=== PATIENT | female | born 1950 | race African-American/Black ===

== ENCOUNTER 2017-04-19 14:48 | Inpatient (IN) ==
[2017-04-19] MEDS ORDERED: DILTIAZEM 100 MG VIAL.ADD IV ONE (15:06)
--- NOTE | 2017-04-19 15:29 | Emergency Department Note ---
Jean Vasquez Manpreet, am scribing for, and in the presence of, Kirby Chahal MD 15:20. Fela Vasquez Phillip K, MD, personally performed the services described in this documentation, ascribed by Sterling Pena in my presence, and it is both accurate and complete 528 . Arrival - Arrival Chief Complaint: Arrhythmia/Palpitations Stated Complaint: palpitations ED Nursing Triage Note: Pt was transfer from [facility] - AFIB - pt denies any chest pain - pt is on cardizem - no chest pain Mode of Arrival: Stretcher Limitations: No Limitations Source: Patient - History of Present Illness HPI Narrative: Pt is a 66 y/o female who is transferred from [facility] for AFIB and palpations. Pt c/o having sudden CP this AM around 0900 today. Pt also c/o SOB and having a fever earlier this week. Pt's temperature during triage was 97.3 F. Pt also c/o coughing with white phlegm. No other pains/complains reported to the ED. patient was seen several months ago at [facility] ER in hospital but does not remember having a heart catheterization. Patient states she was sent to [place] because there were no rooms available here. Patient is normally followed by Dr. Packer for chronic back pain. Onset (ago): hour(s) (This AM at 0900) Consistency: constant Severity: moderate Allergies/Adverse Reactions: Allergies Allergy/AdvReac Type Severity Reaction Status Date / Time ampicillin Allergy ITCHING Verified 11/18/15 16:49 cephalexin [From Keflex] Allergy ITCHING Verified 11/18/15 16:49 hydroxyzine [From Vistaril] Allergy ITCHING Verified 11/18/15 16:49 ketorolac [From Toradol] Allergy ITCHING Verified 11/18/15 16:49 Penicillins Allergy ITCHING Verified 11/18/15 16:49 Home Medications: Home Medications Medication Instructions Recorded Confirmed Type Aspirin [Ecotrin] 81 mg PO DAILY 11/18/15 04/04/16 History Buspirone HCl 15 mg PO TID 11/18/15 04/04/16 History Fentanyl [Fentanyl 50 mcg/hr Patch] 1 patch TRANSDERM Q3D 11/18/15 04/04/16 History Lisinopril 40 mg PO DAILY 11/18/15 04/04/16 History Magnesium Gluconate Tab 1,000 mg PO BID 11/18/15 04/04/16 History Metformin HCl 500 mg PO BID 11/18/15 04/04/16 History Oxycodone HCl/Acetaminophen 1 tablet PO BID PRN 11/18/15 04/04/16 History [Oxycodone-Acetaminophen 10-325] Potassium Chloride Cap/Tab [K Dur] 20 meq PO BID 11/18/15 04/04/16 History Rosuvastatin [Crestor] 20 mg PO DAILY 11/18/15 04/04/16 History dilTIAZem HCl [Diltiazem ER (24 300 mg PO DAILY 11/18/15 04/04/16 History hr)] Acetaminophen with Codeine 1 each PO BID 04/04/16 04/04/16 History [Acetaminophen-Cod #3 Tablet] Gabapentin 400 mg PO BID 04/04/16 04/04/16 History Review of System - Review of System 12 point system: reviewed and no additional remarkable complaints except as stated - Review of System Constitutional: Present: chills, fever (Earlier this week ). Absent: diaphoresis Head/Ears/Nose/Throat: Absent: sore throat Respiratory: Present: cough (With white phlegm), respiratory distress Cardiovascular: Present: chest pain. Absent: dyspnea on exertion Gastrointestinal: Absent: abdominal pain, nausea, vomiting Genitourinary female: Absent: dysuria Musculoskeletal: Absent: arm pain, back pain Neurological: Absent: headache, weakness, numbness, paresthesias Medical,Surgical,& Family Hx - Medical History Cardio: History of: CHF, Hypertension Psychological: History of: Anxiety Disorders Neurology: History of: Peripheral Neuropathy No history of: Seizures HEENT: History of: Eye Problem Endocrine: History of: Diabetes Mellitus (NIDDM), Dyslipidemia Rheumatology: History of;: Rheumatoid Arthritis Respiratory: History of: COPD Genitourinary: History of: Recurring Urinary Tract Infections Gastrointestinal: History of: GERD, GI Problems Hematology: History of: Anemia - Surgical History HEENT Surgeries: Surgical HX of: Tonsilectomy & Adenoidectomy Abdominal Surgeries: Surgical HX of: Abdominal Surgery, Cholecystectomy - Family History Family History: Reports;: Family Cancer (father (prostate)), Family Diabetes ( sisters), Family Hypertension (father, mother, sisters), Family Psychiatric Problems (brother) - Social History Smoking Status: Never smoker Frequency of Alcohol Use: None Type of Drug Use: None Exam Vital Signs: Vital Signs Temperature 97.3 F L 04/19/17 15:04 Pulse Rate 129 H 04/19/17 15:04 Respiratory Rate 20 04/19/17 15:04 Blood Pressure 146/112 04/19/17 15:04 O2 Sat by Pulse Oximetry 100 04/19/17 14:57 - General General appearance: alert, in no apparent distress - Head Head exam: Present: atraumatic, normocephalic, normal inspection - Eye Eye exam: Present: normal appearance, PERRL, EOMI - ENT ENT exam: Present: normal exam, normal oropharynx, mucous membranes moist, TM's normal bilaterally - Neck Neck exam: Present: normal inspection, full ROM, trachea midline - Chest Chest inspection: Present: normal inspection, symmetric chest wall rise. Absent : tenderness - Respiratory Respiratory exam: Present: normal lung sounds bilaterally. Absent: accessory muscle use, rales, respiratory distress, wheezes - Cardiovascular Cardiovascular exam: Present: tachycardia, irregular rhythm, normal heart sounds. Absent: regular rate, normal rhythm, murmur, rubs, gallop - Abdominal Exam Abdominal exam: Present: soft, normal bowel sounds. Absent: distention, tenderness, guarding, rebound - Extremities Exam Extremities exam: Present: normal inspection, full ROM. Absent: tenderness - Back Exam Back exam: Present: normal inspection, full ROM. Absent: tenderness - Neurological Exam Neurological exam: Present: alert, oriented X3, CN II-XII intact, reflexes normal - Psychiatric Psychiatric exam: Present: normal affect, normal mood - Skin Skin exam: Present: warm, dry, intact, normal color. Absent: pallor Course Course Narrative: Patient discussed with the hospitalist who will admit for further evaluation. Repeat labs here are presently pending. Results - Labs Lab Results: I have reviewed the patients labs (Labs reviewed from [facility] which showed normal cardiac isoenzymes and normal white blood count. Patient begun on a Cardizem infusion at 15 mg/h.) - EKG EKG results: interpreted by EVA (Atrial fibrillation with RVR, nonspecific ST- T changes) Disposition Clinical Impression: Atrial fibrillation with RVR, Chest pain possible angina, Chronic back pain Case discussed with: patient Disposition: Still a Patient Condition: Guarded
[2017-04-19] MEDS ORDERED: NITROGLYCERIN 2% OINT 1 INCH/GM PACK TOP ONE (15:35)
--- NOTE | 2017-04-19 16:03 | EKG Report ---
Stationary ECG Study [facility] ER Test Date: 04/19/2017 3:02:37 PM Pat Name: RIGOBERTO LAWSON Department: Room: Gender: F Medical Specialist: : [id number] Requested by: Kirby Keenan Order Number: [id number] Reading MD: ALLIE HERZOG Intervals [place] Rate: 118 P: 999 TX: 0 QRS: 85 QRSD: 77 T: -24 QT: 313 QTc: 383 Interpretive Statements ATRIAL FIBRILLATION WITH RAPID VENTRICULAR RESPONSE NONSPECIFIC T-WAVE ABNORMALITY Electronically Signed On 04-20-17 15:53:14 CDT by ALLIE HERZOG [email or web address]
[2017-04-19] MEDS ORDERED: INSULIN REGULAR 100 UNIT/ML SUBCUT ONE (16:06)
[2017-04-19] MEDS ORDERED: MAGNESIUM SULF RIDER 2 GM in PREMIX 1 EACH IV PRN (16:06)
[2017-04-19] MEDS ORDERED: MAGNESIUM SULF RIDER 4 GM in PREMIX 1 EACH IV PRN (16:06)
--- NOTE | 2017-04-19 16:09 | XRay Report ---
XR chest 1V Indication: Chest pain. Chest one view: Comparison 11/14/2016. Heart size and mediastinal contour normal. Right hemidiaphragm slightly elevated. No infiltrates. Pleural spaces are clear. Excess lordosis noted. Impression: Elevated right hemidiaphragm. No acute cardia pulmonary disease. PROCEDURE INTERPRETED AT [facility] DEPARTMENT OF RADIOLOGY Final Report Signed by: Mika Dumont M.D.
[2017-04-19] MEDS ORDERED: DILTIAZEM 50 MG/10 ML VIAL IV ONE (16:20)
[2017-04-19] MEDS ORDERED: DILTIAZEM 50 MG/10 ML VIAL IV STA (16:33)
--- NOTE | 2017-04-19 16:37 | Hospitalist History & Physical ---
Assessment and Plan (1) Atrial fibrillation with RVR Status: Acute Assessment and plan: The patient reported recent diagnosis 1 month ago of atrial fibrillation. She reported that she had been largely compliant with her medication regimen which consisted of Cardizem and Xarelto prior to presentation. The patient continues to have issues with rate control despite the use of a Cardizem drip. We will monitor closely. We will continue Cardizem drip and titrated as needed. We will consult cardiology to evaluate and assist during the clinical encounter. In addition, we will resume all cardiovascular home medications as previously ordered. Current Visit: Yes (2) Chronic back pain Status: Acute Assessment and plan: The patient is followed in out patient setting by Dr. Packer for pain management. Reports that she has multiple diagnoses attributed to her pain including lupus, rheumatoid arthritis, and lumbago. Upon review of the external facility record, the patient has required a hospitalization in the past for a unintentional drug overdose. We will order urine drug screen. We will reviewed the patient's home medications however, we will treat the patient' s pain cautiously. Current Visit: Yes (3) Hypercholesteremia Status: Acute Assessment and plan: We will obtain lipid panel. We will resume home Crestor dose as previously ordered. Current Visit: No (4) DM2 (diabetes mellitus, type 2) Status: Chronic Assessment and plan: We will obtain hemoglobin A1c and start Accu-Cheks with sliding scale coverage for Current Visit: No Qualifiers: Diabetes mellitus complication status: with neurologic complications Diabetes mellitus complication detail: with polyneuropathy Qualified Code(s): E11.42 - Type 2 diabetes mellitus with diabetic polyneuropathy History of Present Illness Chief complaint: Chest pain History of present illness: This is a very pleasant 66-year-old female that presented to the ED at [facility] this afternoon as a transfer from [facility] for the evaluation of chest pain. Patient has a medical history significant for [id number] diabetes mellitus, hypertension, hyperlipidemia, peripheral neuropathy, atrial fibrillation, chronic back pain, chronic pain syndrome, gastroesophageal reflux disease with esophagitis, lupus erythematosus, rheumatoid arthritis, diabetes. Patient has surgical history significant for tonsillectomy, adenoidectomy, and cholecystectomy. The patient reported the onset of symptoms around 9:00 this morning. The patient reported that she was experiencing cold-like symptoms for the entire week. She reported that she started to feel short of breath and developed a productive cough with white phlegm. In addition, the patient reported a recent clinical encounter at [facility] in [facility] in which she first learned of her atrial fibrillation diagnosis. She reports that she had been compliant with her medications otherwise. She became alarmed when her chest pain fail to improve prompting her to present to the ED at [facility] for further evaluation. The patient was seen and evaluated upon arrival at the ED at [facility]. The patient was placed on a equipment monitor phototypesetting and found to be in atrial fibrillation with rapid ventricular response. The patient was immediately started on Cardizem however, the patient's heart rate failed to improve. Labs were obtained which were remarkable for CK-MB 1.0, troponin less than 0.03, magnesium 1.7. Due to the severity of the patient's current cardiac status, the patient was subsequently transferred to [facility] for further evaluation. The patient was assessed at the time of ED presentation. The patient was still noted to be experiencing atrial fibrillation with rapid ventricular response. Cardizem was seen increased in response to the cardiac abnormalities. After brief discussion with both Dr. Chahal and Dr. Miranda, the patient will be admitted to the hospitalist group for continuation of care. Due to the severity of the patient's presenting complaints, the patient will be placed on the telemetry unit. Home medications have been reviewed and reconciled. CODE STATUS discussed; patient is a FULL CODE. Home Medications Medication Instructions Recorded Confirmed Type Aspirin [Ecotrin] 81 mg PO DAILY 11/18/15 04/04/16 History Buspirone HCl 15 mg PO TID 11/18/15 04/04/16 History Fentanyl [Fentanyl 50 mcg/hr Patch] 1 patch TRANSDERM Q3D 11/18/15 04/04/16 History Lisinopril 40 mg PO DAILY 11/18/15 04/04/16 History Magnesium Gluconate Tab 1,000 mg PO BID 11/18/15 04/04/16 History Metformin HCl 500 mg PO BID 11/18/15 04/04/16 History Oxycodone HCl/Acetaminophen 1 tablet PO BID PRN 11/18/15 04/04/16 History [Oxycodone-Acetaminophen 10-325] Potassium Chloride Cap/Tab [K Dur] 20 meq PO BID 11/18/15 04/04/16 History Rosuvastatin [Crestor] 20 mg PO DAILY 11/18/15 04/04/16 History dilTIAZem HCl [Diltiazem ER (24 300 mg PO DAILY 11/18/15 04/04/16 History hr)] Acetaminophen with Codeine 1 each PO BID 04/04/16 04/04/16 History [Acetaminophen-Cod #3 Tablet] Gabapentin 400 mg PO BID 04/04/16 04/04/16 History Allergies Allergy/AdvReac Type Severity Reaction Status Date / Time ampicillin Allergy ITCHING Verified 11/18/15 16:49 cephalexin [From Keflex] Allergy ITCHING Verified 11/18/15 16:49 hydroxyzine [From Vistaril] Allergy ITCHING Verified 11/18/15 16:49 ketorolac [From Toradol] Allergy ITCHING Verified 11/18/15 16:49 Penicillins Allergy ITCHING Verified 11/18/15 16:49 Medical,Surgical,& Family Hx - Medical History Cardio: History of: CHF, Hypertension Psychological: History of: Anxiety Disorders Neurology: History of: Peripheral Neuropathy No history of: Seizures HEENT: History of: Eye Problem Endocrine: History of: Diabetes Mellitus (NIDDM), Dyslipidemia Rheumatology: History of;: Rheumatoid Arthritis Respiratory: History of: COPD Genitourinary: History of: Recurring Urinary Tract Infections Gastrointestinal: History of: GERD, GI Problems Hematology: History of: Anemia - Surgical History HEENT Surgeries: Surgical HX of: Tonsilectomy & Adenoidectomy Abdominal Surgeries: Surgical HX of: Abdominal Surgery, Cholecystectomy - Family History Family History: Reports;: Family Cancer (father (prostate)), Family Diabetes ( sisters), Family Hypertension (father, mother, sisters), Family Psychiatric Problems (brother) - Social History Smoking Status: Never smoker Frequency of Alcohol Use: None Type of Drug Use: None 12 point system: reviewed and no additional remarkable complaints except as stated Exam - Constitutional Vitals: Period Temp Pulse Resp BP Sys/Marquez Pulse Ox Last 24 Hr 97.3 F-97.3 F 129-129 20-20 146-146/112-112 100 General appearance: normal weight, mild distress - Head Head exam: Present: normal inspection, normocephalic - Eye Eye exam: Present: EOMI, conjunctival injection Pupils: Present: ADA, normal accommodation - ENT ENT exam: Present: normal exam, normal external ear exam, normal oropharynx - Neck Neck exam: Present: normal inspection. Absent: lymphadenopathy, meningismus, tenderness, thyromegaly - Respiratory Respiratory exam: Present: clear to auscultation bilaterally. Absent: rales, rhonchi, stridor, wheezes - Cardiovascular Cardiovascular exam: Present: irregular rhythm (Atrial fibrillation with rapid ventricular response). Absent: carotid bruit, diastolic murmur, gallop, JVD, rubs, systolic murmur - GI/Abdominal GI/Abdominal exam: Present: normal bowel sounds, soft - Extremities Exam Extremities exam: Present: normal inspection, normal capillary refill, full ROM. Absent: edema - Neurological Exam Neurological exam: Present: alert, oriented X3, CN II-XII intact - Psychiatric Psychiatric exam: Present: anxious - Skin Skin exam: Present: normal color, warm, dry Results - Labs Lab Results: I have reviewed the past 24 hour labs
[2017-04-19] MEDS ORDERED: RIVAROXABAN 20 MG TABLET PO SCH (17:00)
[2017-04-19] MEDS ORDERED: NITROGLYCERIN 2% OINT 1 INCH/GM PACK TOP STA (17:13)
[2017-04-19] MEDS ORDERED: DILTIAZEM INJ 100 MG in SODIUM CHLORIDE 0.9% 100 ML IV SCH (17:30)
[2017-04-19] MEDS ORDERED: ACETAMINOPHEN 325 MG TABLET PO PRN (17:41)
[2017-04-19] MEDS: ONDANSETRON 4 MG/2 ML VIAL IV PRN ×2 (17:58→23:00)
[2017-04-19] MEDS: DILTIAZEM 60 MG TABLET PO SCH ×2 (17:59→21:09)
[2017-04-19] MEDS: oxyCODONE/ACETAMINOPHEN 5-325 MG TABLET PO PRN (18:01)
[2017-04-19] MEDS ORDERED: ROSUVASTATIN 20 MG TABLET PO SCH (21:00)
[2017-04-19] MEDS: GABAPENTIN 400 MG CAPSULE PO SCH (21:09)
[2017-04-19] MEDS: METOPROLOL TARTRATE 25 MG TABLET PO SCH (21:10)
[2017-04-19] MEDS: ACETAMINOPHEN 325 MG TABLET PO PRN (21:12)
[2017-04-20 05:07] LABS: Alanine Aminotransferase 27 U/L (13-56); Albumin 3.9 G/DL (3.4-5.0); Alkaline Phosphatase 60 U/L (45-117); Aspartate Amino Transferase 21 U/L (0-37); Bilirubin,Total < 0.39 MG/DL (0.2-1.0); Blood Urea Nitrogen 9 MG/DL (7-18); Calcium 8.7 MG/DL (8.5-10.1); Glucose 126 MG/DL (74-106); Osmolality,Calculated 279.4 MOS/KG (273-304); Potassium 3.6 MMOL/L (3.5-5.1); Sodium 140 MMOL/L (136-145); Total Protein 6.7 G/DL (6.4-8.3)
[2017-04-20] MEDS: oxyCODONE/ACETAMINOPHEN 5-325 MG TABLET PO PRN ×2 (05:24→21:03)
[2017-04-20 07:14] LABS: Basophils % 0.3 % (0.0-0.8); Eosinophils # 0.2 10*3/uL (0.0-0.87); Eosinophils % 2.9 % (0.00-10.9); Hemoglobin 12.5 GM/DL (12.0-16.0); Immature Granulocytes % 0.2 %; Immature Granulocytes Absolute 0.01 #; Lymphocytes # 2.9 10*3/uL (1.4-4.0); Lymphocytes % 49.4 % (21.3-54.2); Mean Corpuscular HGB Conc 35.7 GM/DL (32-36); Mean Corpuscular Hemoglobin 33 PG (27-34); Mean Corpuscular Volume 91.6 FL (87-102); Monocytes # 0.3 10*3/uL (0.11-0.8); Neutrophils # 2.4 10*3/uL (1.4-7.4); Neutrophils % 42.2 % (38.7-73.9); Platelet Count 254 T/CUMM (130-400); Red Blood Count 3.82 MC/CUMM (3.8-5.5); Red Cell Distribution Width 12.7 % (9.3-17.3); White Blood Count 5.8 T/CUMM (4-12)
[2017-04-20 07:31] LABS: PT Patient Result 11.1 SECS
[2017-04-20] MEDS: ONDANSETRON 4 MG/2 ML VIAL IV PRN ×2 (09:41→18:15)
[2017-04-20] MEDS: DILTIAZEM 60 MG TABLET PO SCH ×4 (09:51→21:03)
[2017-04-20] MEDS: GABAPENTIN 400 MG CAPSULE PO SCH ×2 (09:51→21:04)
[2017-04-20] MEDS: PANTOPRAZOLE 40 MG TABLET PO SCH (09:52)
[2017-04-20] MEDS: METOPROLOL TARTRATE 25 MG TABLET PO SCH ×2 (09:52→21:04)
[2017-04-20] MEDS: ACETAMINOPHEN 325 MG TABLET PO PRN ×2 (09:52→23:42)
[2017-04-20] MEDS: ASPIRIN EC 81 MG TABLET PO SCH (09:52)
[2017-04-20] MEDS ORDERED: DIAZEPAM 5 MG TABLET PO ONE (11:12)
[2017-04-20] MEDS ORDERED: diphenhydrAMINE CAP 25 MG CAPSULE PO ONE (11:12)
--- NOTE | 2017-04-20 11:12 | Cardiology Consult Note ---
Josue Vasquez Vanessa RN, am scribing for, and in the presence of, Melodie Moreno DO 11 :10. Assessment and Plan - Time spent with patient Time spent with patient: Greater than 30 minutes (Due to assessment, planning, documentation, and medication review) (1) Atrial fibrillation with RVR Status: Acute Assessment and plan: Ventricular response better controlled this morning. She has been transitioned from IV Cardizem to PO Cardizem. Anticoagulated with Xarelto for stroke prevention. No overt s/s heart failure. Echocardiogram pending. As per HPI Current Visit: Yes (2) Chronic back pain Status: Chronic Assessment and plan: Pain medicines have been continued. Will defer primary management of this to attending physician and pain management. Current Visit: Yes Qualifiers: Back pain location: low back pain (3) Hypercholesteremia Status: Chronic Assessment and plan: Rosuvastatin has been continued. Lipid status unknown. Can check fasting lipid panel in the morning. Current Visit: No (4) Peripheral neuropathy Status: Chronic Assessment and plan: Continue current plan of care. Current Visit: No (5) DM2 (diabetes mellitus, type 2) Status: Chronic Assessment and plan: Continue current plan of care. Defer primary management to attending physician. Current Visit: No Qualifiers: Diabetes mellitus complication status: with neurologic complications Diabetes mellitus complication detail: with polyneuropathy (6) Hypertension Status: Chronic Assessment and plan: Well controlled on current regimen. Continue as present. Current Visit: No History of Present Illness - Data of Consult Patient: new to practice Consult date: 04/20/17 Requesting Physician: Pili Newsome Primary care physician: Kelley Chun - Consult Narrative Reason for consult: Chest pain, atrial fib RVR History of present illness: [facility] [employer] HELPER: DR. LEON (appointment scheduled for May 24) Ms. Randall is a 66 year old female with risk factors significant for: hypertension , diabetes (with neuropathy), hyperlipidemia. Past medical history includes recent diagnosis of atrial fibrillation, GERD with esophagitis, lupus, rheumatoid arthritis. She has chronic pain syndrome and is routinely followed by Dr. Packer. Has had a recent hospital admission to [facility] for unintentional drug overdose, and during admit was initially diagnosed with atrial fibrillation. She was started on Xarelto for stroke prevention and has been compliant with it. Ms. Randall was admitted to [facility] telemetry and transfer from [facility] yesterday afternoon after she presented to the ED there reporting chest pain and palpitations with shortness of breath since approximately 9 AM that morning and had also developed a cough with with phlegm and fever earlier in the week. She was noted to be in atrial fibrillation with rapid ventricular response in the 130s. Received IV Cardizem bolus and infusion prior to arrival at [facility]. Cardiac biomarkers normal. Afebrile since admission. After admission to telemetry, PO Cardizem was started and IV infusion titrated/discontinued. EKG has been benign for ischemic change. Cardiology consulted for further assistance in management of atrial fibrillation with chest discomfort. Ms. Randall is awake and alert this morning. She is pleasant, but she is anxious saying, "I just can't relax." Patient also complains of severe headache that has been unrelenting since yesterday afternoon. NitroBid paste in use. She is not short of breath and reports no further chest discomfort since yesterday evening. Describes chest pain in left subdiaphraghmatical area "two elephants jumping around in my chest and sharp" with occasional radiation into left deltoid area. No nausea, vomiting, diaphoresis. Reports she has been having frequent night sweats and chills. Denies recent use of OTC decongestants for cold s/s. Patient says she has been diagnosed with CHF in the past but hasn't required diuretics, etc for "at least 3 years." No orthopnea, PND, or lower extremity edema. Uses at least 5 pillows at night for purpose of being comfortable at night in relation to chronic pain. Denies previous left heart catheterization. Labs reviewed. H/H stable. Electrolytes within acceptable range. Renal function stable. Serial cardiac biomarkers normal. In summary Ms. Randall is a 66-year-old dyslipidemic diabetic hypertensive female that has atrial fibrillation for some unknown duration of time. She is a reformed smoker. She denies ever having had evaluation with invasive or noninvasive for ischemic disease but has known about atrial fibrillation and even had "heart failure" in the past. Her echocardiogram was performed this morning and is pending I will read as soon as it is available. I discussed with the patient and her at the bedside risk benefits and options and I feel given her risk strata and her atrial fibrillation she needs evaluation for coronary artery disease. I think invasive evaluation is best. I discussed with her risks benefits and options and she is willing to proceed. She did not receive breakfast until 9:00 this morning and by our hospital policy she can't receive sedation today therefore she can't be cathed with sedation until tomorrow. She is also on Xarelto. I will hold her diet and her Xarelto and plan on LHC tomorrow. I discussed with her rn integrity Dr. Leon and she will plan on the procedure in the morning at her leisure. Risk, Benefits and options were discussed with the patient and her . Her is concerned about "blood clots in her legs" but understands the low probability of the many potential complications discussed with them. CC: Jannie Mansfield MD - Home Medications and Allergies Home Medications: Home Medications Medication Instructions Recorded Confirmed Type Aspirin [Ecotrin] 81 mg PO DAILY 11/18/15 04/19/17 History Buspirone HCl 15 mg PO TID 11/18/15 04/19/17 History Fentanyl [Fentanyl 50 mcg/hr Patch] 1 patch TRANSDERM Q3D 11/18/15 04/19/17 History Magnesium Gluconate Tab 1,000 mg PO BID 11/18/15 04/19/17 History Metformin HCl 500 mg PO BID 11/18/15 04/19/17 History Oxycodone HCl/Acetaminophen 1 tablet PO BID PRN 11/18/15 04/19/17 History [Oxycodone-Acetaminophen 10-325] Potassium Chloride Cap/Tab [K Dur] 20 meq PO BID 11/18/15 04/19/17 History Rosuvastatin [Crestor] 20 mg PO DAILY 11/18/15 04/19/17 History dilTIAZem HCl [Diltiazem ER (24 300 mg PO DAILY 11/18/15 04/19/17 History hr)] Acetaminophen with Codeine 1 each PO BID 04/04/16 04/19/17 History [Acetaminophen-Cod #3 Tablet] Gabapentin 400 mg PO BID 04/04/16 04/19/17 History Allergies/Adverse Reactions: Allergies Allergy/AdvReac Type Severity Reaction Status Date / Time ampicillin Allergy ITCHING Verified 11/18/15 16:49 cephalexin [From Keflex] Allergy ITCHING Verified 11/18/15 16:49 hydroxyzine [From Vistaril] Allergy ITCHING Verified 11/18/15 16:49 ketorolac [From Toradol] Allergy ITCHING Verified 11/18/15 16:49 Penicillins Allergy ITCHING Verified 11/18/15 16:49 - Constitutional Constitutional: Present: weight loss. Absent: anorexia, fever(s), lethargy, weakness, weight gain - EENT Eyes: Absent: blurry vision Ears: Absent: decreased hearing Nose, mouth and throat: Absent: dysphagia - Cardiovascular Cardiovascular: Present: chest pain at rest, chest pain with activity, palpitations. Absent: dyspnea, dyspnea on exertion, edema, radiating jaw, neck or arm pain, orthopnea, PND - Respiratory Respiratory: Present: cough, dyspnea on exertion. Absent: hemoptysis - Gastrointestinal Gastrointestinal: Absent: abdominal pain, bloating, melena, nausea, vomiting - Genitourinary Genitourinary: Absent: abnormal vaginal bleeding, dysuria, flank pain, hematuria - Musculoskeletal Musculoskeletal: Present: arthralgias, limited range of motion, myalgias - Neurological Neurological: Absent: abnormal gait, abnormal speech, dizziness, syncope - Psychiatric Psychiatric: Present: anxiety. Absent: depression - Endocrine Endocrine: Present: cold intolerance. Absent: heat intolerance - Hematologic/Lymphatic Hematologic/Lymphatic: Absent: easy bleeding, easy bruising Medical,Surgical,& Family Hx - Medical History Cardio: History of: CHF, Hypertension Psychological: History of: Anxiety Disorders Neurology: History of: Peripheral Neuropathy No history of: Seizures HEENT: History of: Eye Problem Endocrine: History of: Diabetes Mellitus (NIDDM), Dyslipidemia Rheumatology: History of;: Rheumatoid Arthritis Respiratory: History of: COPD Genitourinary: History of: Recurring Urinary Tract Infections Gastrointestinal: History of: GERD, GI Problems Hematology: History of: Anemia - Surgical History HEENT Surgeries: Surgical HX of: Tonsilectomy & Adenoidectomy Abdominal Surgeries: Surgical HX of: Abdominal Surgery, Cholecystectomy - Family History Family History: Reports;: Family Cancer (father (prostate)), Family Diabetes ( sisters), Family Hypertension (father, mother, sisters), Family Psychiatric Problems (brother) - Social History Smoking Status: Never smoker Frequency of Alcohol Use: None Type of Drug Use: None Marital Status: Lives With:: Spouse Functional capacity: independent ambulation Physical Examination Vital Signs Temp Pulse Resp BP Pulse Ox 97.3 F L 129 H 20 146/112 100 04/19/17 14:57 04/19/17 14:57 04/19/17 14:57 04/19/17 14:57 04/19/17 14:57 General: Present: No Apparent Distress HEENT: Present: PERRL Neck: Present: Supple Neck, Midline Trachea, No JVD/HJR Cardiac: Present: Irregularly Regular. Absent: Audible Murmur, Tachycardia, Bradycardia Lungs: Present: Clear Ascult./Percussion, No Wheeze, Rales, Rhonchi. Absent: Oxygen Neuro: Present: Grossly Intact. Absent: Numbness, Tingling, Essential Tremor Abdomen: Present: Soft, Active Bowel Sounds. Absent: Tender, Firm, Distended Skin: Present: Clear, Other (warm, dry). Absent: Rash, Suspicious Lesions, Bruising Musculoskeletal: Present: Decreased Range of Motion (chronic pain syndrome), No Fluid Collection Extremities: Present: No Clubbing, No Cyanosis, Normal Upper Extr. Pulses (3+ bilaterally), Normal Lower Extr. Pulses (2+ bilaterally), Capillary Refill ( normal) Result/EKG - Labs CBC & BMP: 04/20/17 07:06 04/20/17 04:20 Lab Results: I have reviewed the past 24 hour labs Labs: Laboratory Results - last 24 hr 04/19/17 04/19/17 04/19/17 16:13 17:23 19:04 WBC RBC Hgb Hct MCV MCH MCHC RDW Plt Count MPV Neut % (Auto) Lymph % (Auto) Mckinley % (Auto) Eos % (Auto) Baso % (Auto) Neut # (Auto) Lymph # (Auto) Mckinley # (Auto) Eos # (Auto) Baso # (Auto) Immature Gran % Nucleated RBC % Immature Gran # Nucleated RBCs # Immature Plt Fraction INR PT Patient/Control Mix Sodium Potassium Chloride Carbon Dioxide Anion Gap BUN Creatinine GFR Calculation BUN/Creatinine Ratio Glucose POC Glucose 146 H Calculated Osmolality Calcium Magnesium Total Bilirubin AST ALT Alkaline Phosphatase Total Creatine Kinase 71 CK-MB (CK-2) 1.8 Troponin I 0.020 0.016 Total Protein Albumin Globulin Albumin/Globulin Ratio 04/19/17 04/19/17 04/20/17 19:22 22:23 04:20 WBC RBC Hgb Hct MCV MCH MCHC RDW Plt Count MPV Neut % (Auto) Lymph % (Auto) Mckinley % (Auto) Eos % (Auto) Baso % (Auto) Neut # (Auto) Lymph # (Auto) Mckinley # (Auto) Eos # (Auto) Baso # (Auto) Immature Gran % Nucleated RBC % Immature Gran # Nucleated RBCs # Immature Plt Fraction INR PT Patient/Control Mix Sodium 140 Potassium 3.6 Chloride 109 H Carbon Dioxide 22 Anion Gap 12.6 BUN 9 Creatinine 0.50 L GFR Calculation 117 BUN/Creatinine Ratio 18.00 Glucose 126 H POC Glucose 159 H Calculated Osmolality 279.4 Calcium 8.7 Magnesium 2.0 Total Bilirubin < 0.39 AST 21 ALT 27 Alkaline Phosphatase 60 Total Creatine Kinase CK-MB (CK-2) Troponin I 0.015 Total Protein 6.7 Albumin 3.9 Globulin 2.8 Albumin/Globulin Ratio 1.3 04/20/17 04/20/17 04/20/17 07:06 07:06 07:35 WBC 5.8 RBC 3.82 Hgb 12.5 Hct 35.0 L MCV 91.6 MCH 33 MCHC 35.7 RDW 12.7 Plt Count 254 MPV 9.0 L Neut % (Auto) 42.2 Lymph % (Auto) 49.4 Mckinley % (Auto) 5.0 Eos % (Auto) 2.9 Baso % (Auto) 0.3 Neut # (Auto) 2.4 Lymph # (Auto) 2.9 Mckinley # (Auto) 0.3 Eos # (Auto) 0.2 Baso # (Auto) 0.0 Immature Gran % 0.2 Nucleated RBC % 0.0 Immature Gran # 0.01 Nucleated RBCs # 0.00 Immature Plt Fraction 0.0 INR 1.0 PT Patient/Control Mix 11.1 Sodium Potassium Chloride Carbon Dioxide Anion Gap BUN Creatinine GFR Calculation BUN/Creatinine Ratio Glucose POC Glucose 118 H Calculated Osmolality Calcium Magnesium Total Bilirubin AST ALT Alkaline Phosphatase Total Creatine Kinase CK-MB (CK-2) Troponin I Total Protein Albumin Globulin Albumin/Globulin Ratio - Diagnostic Findings Procedure: Chest x-ray: image reviewed by me, report reviewed by me - EKG EKG results: interpreted by me, no acute changes EKG shows: atrial fibrillation Tiffanie Vasquez Shea, , personally performed the services described in this documentation, ascribed by Ginny Salas RN in my presence, and it is both accurate and complete .
--- NOTE | 2017-04-20 11:28 | Hospitalist Progress Note ---
Assessment and Plan (1) Chest pain Status: Acute Assessment and plan: 1)afib- now controlled with oral meds, has been anticoagulated as an outpatient and Xarelto continued here. 2)chest pain- [facility] tomorrow, Dr Moreno has held her Xarelto in preparation. echo pending. 3)chronic pain- resume neurontin, fentanyl patch. contine percocet. TC3 held. 4)headache- stop nitro paste and reassess. Current Visit: Yes (2) Atrial fibrillation with RVR Status: Acute Current Visit: Yes (3) Chronic back pain Status: Chronic Current Visit: Yes Qualifiers: Back pain location: low back pain (4) DM2 (diabetes mellitus, type 2) Status: Chronic Current Visit: No Qualifiers: Diabetes mellitus complication status: with neurologic complications Diabetes mellitus complication detail: with polyneuropathy (5) Hypertension Status: Chronic Current Visit: No (6) Peripheral neuropathy Status: Chronic Current Visit: No Hospitalist: Subjective Interval history: Mrs Randall is feeling "much better" than she did in ER yesterday, but "still feels awful". She occ has chest pains and can feel her heart fluttering in her chest. She denies shortness of breath. Her usual chronic pain in hips and back are about the same. Her headache has been present since starting nitro paste in ER. I have consulted cardiology and she will have [facility] tomorrow to complete eval for new afib that she has been treated for for the last few months. She denies ever having LE edema. Echo pending. Her heart rate is controlled afib on oral dilt with addition of metoprolol also. Exam - Constitutional Vitals: Period Temp Pulse Resp BP Sys/Marquez Pulse Ox Last 24 Hr 97 F-98.7 F 57-129 18-20 114-170/56-112 98-100 General appearance: normal weight, no acute distress - Eye Eye exam: Present: EOMI. Absent: scleral icterus - Respiratory Respiratory exam: Present: clear to auscultation bilaterally - Cardiovascular Cardiovascular exam: Present: irregular rhythm - GI/Abdominal GI/Abdominal exam: Present: normal bowel sounds, soft. Absent: tenderness - Extremities Exam Extremities exam: Absent: edema Results - Labs CBC & BMP: 04/20/17 07:06 04/20/17 04:20 Lab Results: I have reviewed the past 24 hour labs
[2017-04-20] MEDS ORDERED: fentaNYL 50 MCG/HR PATCH TRANSDERM SCH (11:30)
--- NOTE | 2017-04-20 12:33 | ECHO Report ---
Corinne Randall Exam Date: 04/20/2017 10:14 Referring Physician: Technologist: ezequiel Nava ARDMS, RVT Age: 66 Ht (in): 65 Wt (lb): 145 Gender: F Exam Location: [facility] Echo Indications: Chest pain, unspecified, Palpitations, A-Fib w/RVR, chronic back pain BP: 119 / 63 HR: Rhythm: Sinus Technical Quality: AVERAGE IMPRESSIONS The ejection fraction is greater than 65%. There is severe concentric left ventricular hypertrophy and no regional wall motion abnormality. Diastolic parameters are equivocal the patient is in atrial fibrillation. Biatrial enlargement the four-chamber view Atrial fibrillation with controlled ventricular response Mild tricuspid regurgitation peak velocity of 2.06 m/s corresponds in the right ventricular systolic pressure of 27 mmHg plus right atrial pressure. Aortic sclerosis MEASUREMENTS (Male / Female) Normal Values 2D ECHO LV Diastolic Diameter PLAX 3.6 cm 4.2 - 5.9 / 3.9 - 5.3 cm LV Systolic Diameter PLAX 1.9 cm LV Fractional Shortening PLAX 48.8 % IVS Diastolic Thickness 1.4 cm 0.6 - 1.0 / 0.6 - 0.9 cm LVPW Diastolic Thickness 1.4 cm 0.6 - 1.0 / 0.6 - 0.9 cm RV Internal Dim ED PLAX 2.7 cm Aortic Root Diameter 2.6 cm LA Systolic Diameter LX 3.7 cm 3.0 - 4.0 / 2.7 - 3.8 cm DOPPLER TR Peak Velocity 212.0 cm/s TR Peak Gradient 18.0 mmHg FINDINGS Left Ventricle The ejection fraction is greater than 65%. There is severe concentric left ventricular hypertrophy and no regional wall motion abnormality. Diastolic parameters are equivocal the patient is in atrial fibrillation Right Ventricle Right ventricular cavity is at the upper limits of normal Right Atrium Enlarged in the four-chamber view Left Atrium Enlarged in the four-chamber view despite the above measurement of only 3.7 cm in the parasternal long axis view Mitral Valve Posterior leaflet of the mitral valve is thickened hyper echoic and demonstrates decreased excursion. There is no evidence of stenosis Aortic Valve Excellent trileaflet excursion. There is mild sclerosis. No insufficiency or stenosis is demonstrated Tricuspid Valve Mild tricuspid regurgitation peak velocity of 2.06 m/s corresponds in the right ventricular systolic pressure of 27 mmHg plus right atrial pressure Pulmonic Valve The pulmonic valve is normal there is mild pulmonic insufficiency with end-diastolic velocity of 60 cm/s Pericardium No effusion Aorta The limited portion visualized is normal Melodie Moreno (Electronically Signed) Final Date: 20 April 2017 12:33
--- NOTE | 2017-04-20 13:54 | Event Note ---
I was called by the nurses on the floor and the cardiac catheterization lab that the patient wishes to decline left heart catheterization. I went to the room and discussed again with the patient and her . She states that her left leg is bad and she can hardly walk on it and she did not want anybody messing with her right leg. I offered alternative access sites and she says she just does not feel like it right now. Certainly that is fine. She has an appointment to see Dr. Leon next month I recommend that she follow-up with Dr. Leon. Continue anticoagulation. Her rate is controlled her transthoracic echo report is in the E HR. I have nothing further to add I will sign off.
[2017-04-20] MEDS: busPIRone 15 MG TABLET PO SCH ×2 (14:50→21:03)
[2017-04-20] MEDS: MAGNESIUM GLUCONATE 500 MG TABLET PO SCH (21:03)
[2017-04-20] MEDS: POTASSIUM CHLORIDE 20 MEQ TABLET PO SCH (21:04)
[2017-04-20] MEDS ORDERED: SODIUM CHLORIDE 0.45% 1,000 ML IV SCH (23:55)
[2017-04-21] MEDS: ACETAMINOPHEN 325 MG TABLET PO PRN (06:35)
[2017-04-21] MEDS ORDERED: SODIUM CHLORIDE 0.45% 1,000 ML IV SCH (07:00)
[2017-04-21] MEDS ORDERED: ROSUVASTATIN 20 MG TABLET PO SCH (09:00)
[2017-04-21] MEDS: GABAPENTIN 400 MG CAPSULE PO SCH (10:36)
[2017-04-21] MEDS: oxyCODONE/ACETAMINOPHEN 5-325 MG TABLET PO PRN (10:37)
[2017-04-21] MEDS: METOPROLOL TARTRATE 25 MG TABLET PO SCH (10:37)
[2017-04-21] MEDS: DILTIAZEM 60 MG TABLET PO SCH (10:38)
[2017-04-21] MEDS: MAGNESIUM GLUCONATE 500 MG TABLET PO SCH (10:38)
[2017-04-21] MEDS: ASPIRIN EC 81 MG TABLET PO SCH (10:39)
[2017-04-21] MEDS: PANTOPRAZOLE 40 MG TABLET PO SCH (10:39)
[2017-04-21] MEDS: POTASSIUM CHLORIDE 20 MEQ TABLET PO SCH (10:39)
[2017-04-21] MEDS: busPIRone 15 MG TABLET PO SCH (10:41)
--- NOTE | 2017-04-21 11:01 | Discharge Summary ---
<Deepti Madden - Last Filed: 04/21/17 15:54> Hospital Course - Hospital Course Hospital Course: Ms. Randall is a 66-year-old female that presented to the ED on 04/19 as a transfer from [facility] for the evaluation of chest pain. Patient has a history of diabetes mellitus, hypertension, hyperlipidemia , peripheral neuropathy, atrial fibrillation, chronic back pain, chronic pain syndrome, gastroesophageal reflux disease with esophagitis, lupus erythematosus , rheumatoid arthritis, diabetes. Pt. reported that the symptoms started prior to presentation at outside facility. The patient also reported that she had been experiencing cold-like symptoms with shortness of breath. Pt. also revealed a recent diagnosis of afib at a [facility] ([facility] On presentation to [facility], pt was noted to be in afib with rvr. Pt. was transferred over for a higher level of care. Pt. was admitted to the telemetry unit on a cardizem infusion. Cardiology was consulted to evaluate. Echo was ordered. Pt. was able to transition from IV to PO cardizem. Pt's rate was able to be controlled. Pt. was scheduled for a heart cath but subsequently refused. Pt.'s shortness of breath and chest pain resolved. Pt. was discharged home. She is to follow up with Dr. Leon. Specialty Discharge - Follow Up or Referrals Follow up with: Tiffanie Leyva [Other] (in [place]. In 1 week) Linda Leon MD [Physician] - (keep appointment for next month) Discharge Plan - Discharge Data Disposition: Disch To Home/Self Care - Discharge Medications New Metoprolol Tartrate Tab [Lopressor Tab] 25 mg PO BID #60 tablet Rivaroxaban [Xarelto] 20 mg PO DAILY W/SUPPER #30 tablet Continue Metformin HCl 500 mg PO BID Potassium Chloride Cap/Tab [K Dur] 20 meq PO BID Rosuvastatin [Crestor] 20 mg PO DAILY Buspirone HCl 15 mg PO TID dilTIAZem HCl [Diltiazem ER (24 hr)] 300 mg PO DAILY Aspirin [Ecotrin] 81 mg PO DAILY Magnesium Gluconate Tab 1,000 mg PO BID Oxycodone HCl/Acetaminophen [Oxycodone-Acetaminophen 10-325] 1 tablet PO BID PRN PRN Reason: Pain Fentanyl [Fentanyl 50 mcg/hr Patch] 1 patch TRANSDERM Q3D Gabapentin 400 mg PO BID Acetaminophen with Codeine [Acetaminophen-Cod #3 Tablet] 1 each PO BID - Follow Up or Referral Follow Up: Tiffanie Leyva [Other] (in [place]. In 1 week) Linda Leon MD [Physician] - (keep appointment for next month) - Forms/Instructions Exam - Constitutional Vitals: Period Temp Pulse Resp BP Sys/Marquez Pulse Ox Last 24 Hr 97.4 F-98.3 F 59-87 16-24 125-149/58-78 97-99 Discharge Results Procedures and tests throughout hospitalization: Pending Orders 04/19/17 16:23 Urinalysis Stat Labs on day of discharge: Labs from last 24 hours 04/21/17 04/21/17 04/20/17 11:19 07:55 19:12 POC Glucose 163 H 157 H 202 H 04/20/17 15:13 POC Glucose 221 H DS: Provider Date of admission: 04/19/17 16:02 Primary care physician: Melodie Moreno DO Attending physician on admission: Jannie Mansfield MD Consults: 04/19/17 16:13 Consult to Physician [CONS] Routine Comment: Consulting Provider: Mleodie Moreno When should Consulting Provider be notified: In am Consult to Specialist Group: Cardiology Discharging clinician: Deepti Madden NP <Jannie Mansfield - Last Filed: 04/21/17 16:51> Diagnosis - Discharge Diagnosis (1) Chest pain Status: Resolved (2) Atrial fibrillation with RVR Status: Chronic (3) Chronic back pain Status: Chronic (4) DM2 (diabetes mellitus, type 2) Status: Chronic (5) Hypertension Status: Chronic (6) Peripheral neuropathy Status: Chronic Discharge Plan - Discharge Data Condition at Discharge: Stable Discharge Diet: diabetic diet, heart healthy Activity: resume usual activities as tolerated Exam - Constitutional General appearance: normal weight, no acute distress - Eye Eye exam: Present: EOMI. Absent: scleral icterus - Respiratory Respiratory exam: Present: clear to auscultation bilaterally - Cardiovascular Cardiovascular exam: Present: irregular rhythm - GI/Abdominal GI/Abdominal exam: Present: normal bowel sounds, soft. Absent: tenderness - Extremities Exam Extremities exam: Absent: edema
[2017-04-21 11:54] VITALS: BP 145/78
== END 2017-04-21 13:42 | disposition home or self-care (01) | DRG 310 ==
LOC: EDBD → EDUNIT# → N.ED 14:48 → N.EDINP 16:02 → SUATTDRO 16:02 → N.TELEN 16:52
PROVIDERS: ADMIT Internal Medicine; ATTEND Hospitalist

== ENCOUNTER 2017-07-11 06:39 | Inpatient (IN) ==
[2017-07-11] MEDS ORDERED: HYDROmorphone 2 MG/1 ML VIAL IV STA (06:53)
[2017-07-11] MEDS ORDERED: ONDANSETRON 4 MG/2 ML VIAL IV STA (06:53)
[2017-07-11] MEDS ORDERED: SODIUM CHLORIDE 0.9% 1,000 ML IV STA ×2 (06:53→07:14)
[2017-07-11] MEDS ORDERED: LACTATED RINGERS 1,000 ML IV ONE ×2 (07:31→17:13)
[2017-07-11] MEDS ORDERED: HYDROmorphone 2 MG/1 ML VIAL ONE ×2 (08:22→17:31)
[2017-07-11] MEDS ORDERED: ONDANSETRON 4 MG/2 ML VIAL ONE ×3 (08:22→17:31)
[2017-07-11 08:42] LABS: Lactic Acid 1.6 MMOL/L (0.4-2.0)
[2017-07-11 09:23] LABS: Basophils % 0.2 % (0.0-0.8); Eosinophils % 0.2 % (0.00-10.9); Hematocrit 37.1 VOL% (35.7-47.0); Hemoglobin 13.4 GM/DL (12.0-16.0); Immature Granulocytes % 0.5 %; Immature Granulocytes Absolute 0.04 #; Lymphocytes # 1.1 10*3/uL (1.4-4.0); Lymphocytes % 13.1 % (21.3-54.2); Mean Corpuscular HGB Conc 36.1 GM/DL (32-36); Mean Corpuscular Hemoglobin 33 PG (27-34); Mean Corpuscular Volume 92.3 FL (87-102); Mean Platelet Volume 10.3 FL (9.6-12.0); Monocytes # 0.4 10*3/uL (0.11-0.8); Monocytes % 4.7 % (1.7-12.7); Neutrophils % 81.3 % (38.7-73.9); Platelet Count 265 T/CUMM (130-400); Red Blood Count 4.02 MC/CUMM (3.8-5.5); Red Cell Distribution Width 12.2 % (9.3-17.3); White Blood Count 8.7 T/CUMM (4-12)
[2017-07-11 09:27] LABS: Apearance,Urine CLEAR (Clear); Bilirubin,Urine Negative (Negative); Blood, Urine Negative (Negative); Glucose,Urine (UA) Negative (Negative); Ketones,Urine Negative (Negative); Nitrite,Urine Negative (Negative); Protein,Urine Negative; RBC,Urine 2 /HPF (0-4); Squamous Epithelial Cell,Urine Occasional /HPF (0-10); Urine Color Yellow (Yellow); Urine Specific Gravity 1.055 (1.001-1.035); Urine Urobilinogen < 2.0 EU/DL (0.2-1.0); WBC,Urine <1 /HPF (0-6)
[2017-07-11 09:53] LABS: Albumin 4.6 G/DL (3.4-5.0); Bilirubin,Total 0.5 MG/DL (0.2-1.0); Calcium 9.5 MG/DL (8.5-10.1); Osmolality,Calculated 269.2 MOS/KG (273-304); Potassium 3.4 MMOL/L (3.5-5.1); Total Protein 7.6 G/DL (6.4-8.3)
[2017-07-11] MEDS ORDERED: HYDROmorphone 2 MG/1 ML VIAL IV PRN (10:13)
[2017-07-11] MEDS ORDERED: DEXTROSE 50% 25 GM/50 ML VIAL IV PRN (10:13)
[2017-07-11] MEDS ORDERED: GLUCAGON 1 MG VIAL IM PRN (10:13)
[2017-07-11] MEDS ORDERED: ACETAMINOPHEN 325 MG TABLET PO PRN (10:13)
[2017-07-11] MEDS ORDERED: ONDANSETRON 4 MG/2 ML VIAL IV PRN ×2 (10:13→17:28)
[2017-07-11] MEDS: ROSUVASTATIN 20 MG TABLET PO SCH (11:31)
[2017-07-11] MEDS: DILTIAZEM CD 300 MG CAPSULE PO SCH (11:32)
[2017-07-11] MEDS: METOPROLOL TARTRATE 25 MG TABLET PO SCH ×2 (11:33→20:49)
[2017-07-11] MEDS: busPIRone 15 MG TABLET PO SCH ×3 (11:40→20:48)
[2017-07-11] MEDS: GABAPENTIN 400 MG CAPSULE PO SCH ×3 (11:40→20:49)
[2017-07-11] MEDS: ASPIRIN EC 81 MG TABLET PO SCH (11:42)
[2017-07-11] MEDS: PANTOPRAZOLE 40 MG VIAL IV SCH (11:43)
[2017-07-11] MEDS: LACTATED RINGERS 1,000 ML IV SCH ×2 (11:43→18:15)
[2017-07-11] MEDS: fentaNYL 50 MCG/HR PATCH TRANSDERM SCH ×2 (11:58→21:07)
[2017-07-11] MEDS ORDERED: CLINDAMYCIN INJ 900 MG in PREMIX 1 EACH IV ONE (13:20)
[2017-07-11] MEDS ORDERED: ALBUTEROL/IPRATROPIUM 3 ML NEB RESP TX STA (14:01)
[2017-07-11] MEDS: INSULIN REGULAR 100 UNIT/ML SUBCUT SCH ×2 (14:57→18:00)
[2017-07-11] MEDS ORDERED: CLINDAMYCIN INJ 50 ML IV ONE (15:12)
[2017-07-11] MEDS ORDERED: SUGAMMADEX 200 MG/2 ML VIAL IV ONE (16:21)
[2017-07-11] MEDS ORDERED: SEVOFLURANE 1 UNIT/15 MINUTE INH ONE (17:11)
[2017-07-11] MEDS ORDERED: SUCCINYLCHOLINE 200 MG/10 ML VIAL ONE (17:12)
[2017-07-11] MEDS ORDERED: MIDAZOLAM 2 MG/2 ML VIAL ONE (17:12)
[2017-07-11] MEDS ORDERED: fentaNYL 100 MCG/2 ML VIAL ONE (17:12)
[2017-07-11] MEDS ORDERED: ePHEDrine 50 MG/ML AMP ONE (17:12)
[2017-07-11] MEDS ORDERED: ROCURONIUM 100 MG/10 ML VIAL IV ONE (17:12)
[2017-07-11] MEDS ORDERED: DEXAMETHASONE 10 MG/1 ML VIAL ONE (17:12)
[2017-07-11] MEDS: HYDROmorphone 2 MG/1 ML VIAL IV PRN ×4 (17:30→17:45)
[2017-07-11] MEDS ORDERED: NALOXONE 0.4 MG/ML VIAL IV PRN (18:51)
[2017-07-11] MEDS: HYDROmorphone PCA 30 MG/30 ML SYRINGE IV SCH (19:30)
[2017-07-12] MEDS: INSULIN REGULAR 100 UNIT/ML SUBCUT SCH ×4 (00:29→18:03)
[2017-07-12] MEDS: LACTATED RINGERS 1,000 ML IV SCH ×3 (02:51→19:40)
[2017-07-12 07:14] LABS: Calcium 8.3 MG/DL (8.5-10.1); Osmolality,Calculated 276.7 MOS/KG (273-304); Potassium 3.7 MMOL/L (3.5-5.1)
[2017-07-12 07:55] LABS: Basophils % 0.1 % (0.0-0.8); Hemoglobin 11.4 GM/DL (12.0-16.0); Immature Granulocytes % 0.4 %; Immature Granulocytes Absolute 0.03 #; Lymphocytes # 0.6 10*3/uL (1.4-4.0); Lymphocytes % 8.8 % (21.3-54.2); Mean Corpuscular HGB Conc 34.5 GM/DL (32-36); Mean Corpuscular Hemoglobin 33 PG (27-34); Mean Platelet Volume 9.6 FL (9.6-12.0); Monocytes # 0.5 10*3/uL (0.11-0.8); Monocytes % 6.9 % (1.7-12.7); Neutrophils # 5.7 10*3/uL (1.4-7.4); Neutrophils % 83.8 % (38.7-73.9); Platelet Count 210 T/CUMM (130-400); Red Blood Count 3.51 MC/CUMM (3.8-5.5); Red Cell Distribution Width 12.6 % (9.3-17.3); White Blood Count 6.8 T/CUMM (4-12)
[2017-07-12] MEDS: PANTOPRAZOLE 40 MG VIAL IV SCH (08:29)
[2017-07-12] MEDS: ROSUVASTATIN 20 MG TABLET PO SCH (09:58)
[2017-07-12] MEDS: METOPROLOL TARTRATE 25 MG TABLET PO SCH ×3 (09:58→20:46)
[2017-07-12] MEDS: ASPIRIN EC 81 MG TABLET PO SCH (09:58)
[2017-07-12] MEDS: DILTIAZEM CD 300 MG CAPSULE PO SCH ×2 (09:58→11:17)
[2017-07-12] MEDS: GABAPENTIN 400 MG CAPSULE PO SCH ×2 (09:58→20:33)
[2017-07-12] MEDS: busPIRone 15 MG TABLET PO SCH ×3 (09:58→20:46)
[2017-07-12] MEDS: ENOXAPARIN 40 MG/0.4 ML SYRINGE SUBCUT SCH (15:07)
[2017-07-13] MEDS: INSULIN REGULAR 100 UNIT/ML SUBCUT SCH ×4 (00:41→17:47)
[2017-07-13] MEDS: LACTATED RINGERS 1,000 ML IV SCH (03:45)
[2017-07-13 04:35] LABS: Basophils % 0.1 % (0.0-0.8); Eosinophils % 0.3 % (0.00-10.9); Hematocrit 33.8 VOL% (35.7-47.0); Hemoglobin 11.7 GM/DL (12.0-16.0); Immature Granulocytes % 0.4 %; Immature Granulocytes Absolute 0.03 #; Lymphocytes # 1.8 10*3/uL (1.4-4.0); Lymphocytes % 24.6 % (21.3-54.2); Mean Corpuscular HGB Conc 34.6 GM/DL (32-36); Mean Corpuscular Hemoglobin 32 PG (27-34); Mean Corpuscular Volume 93.6 FL (87-102); Mean Platelet Volume 9.6 FL (9.6-12.0); Monocytes # 0.6 10*3/uL (0.11-0.8); Monocytes % 8.1 % (1.7-12.7); Neutrophils # 4.9 10*3/uL (1.4-7.4); Neutrophils % 66.5 % (38.7-73.9); Platelet Count 227 T/CUMM (130-400); Red Blood Count 3.61 MC/CUMM (3.8-5.5); Red Cell Distribution Width 12.5 % (9.3-17.3); White Blood Count 7.4 T/CUMM (4-12)
[2017-07-13 05:07] LABS: Calcium 8.5 MG/DL (8.5-10.1); Osmolality,Calculated 278.4 MOS/KG (273-304); Potassium 3.1 MMOL/L (3.5-5.1)
[2017-07-13] MEDS: DILTIAZEM CD 300 MG CAPSULE PO SCH (09:12)
[2017-07-13] MEDS: METOPROLOL TARTRATE 25 MG TABLET PO SCH ×2 (09:16→21:17)
[2017-07-13] MEDS: ROSUVASTATIN 20 MG TABLET PO SCH (09:16)
[2017-07-13] MEDS: ASPIRIN EC 81 MG TABLET PO SCH (09:17)
[2017-07-13] MEDS: busPIRone 15 MG TABLET PO SCH ×3 (09:17→21:17)
[2017-07-13] MEDS: GABAPENTIN 400 MG CAPSULE PO SCH ×2 (09:18→21:17)
[2017-07-13] MEDS: HYDROmorphone PCA 30 MG/30 ML SYRINGE IV SCH (09:22)
[2017-07-13] MEDS: PANTOPRAZOLE 40 MG VIAL IV SCH (09:31)
[2017-07-13] MEDS: DEXT 5% NACL 0.45% KCL 40 MEQ 40 MEQ/1,000 ML BAG IV SCH ×2 (09:32→21:21)
[2017-07-13] MEDS: ENOXAPARIN 40 MG/0.4 ML SYRINGE SUBCUT SCH (12:12)
[2017-07-13] MEDS: POTASSIUM CHLORIDE RIDER 10 MEQ in PREMIX 1 EACH IV PRN ×5 (12:12→23:27)
[2017-07-13] MEDS: oxyCODONE/ACETAMINOPHEN 5-325 MG TABLET PO PRN (17:40)
[2017-07-14] MEDS: INSULIN REGULAR 100 UNIT/ML SUBCUT SCH ×4 (00:29→18:05)
[2017-07-14] MEDS: DEXT 5% NACL 0.45% KCL 40 MEQ 40 MEQ/1,000 ML BAG IV SCH ×3 (02:49→22:08)
[2017-07-14] MEDS: oxyCODONE/ACETAMINOPHEN 5-325 MG TABLET PO PRN ×4 (03:30→20:59)
[2017-07-14 03:54] LABS: Basophils % 0.3 % (0.0-0.8); Eosinophils # 0.1 10*3/uL (0.0-0.87); Hematocrit 33.8 VOL% (35.7-47.0); Hemoglobin 11.5 GM/DL (12.0-16.0); Immature Granulocytes % 0.6 %; Immature Granulocytes Absolute 0.04 #; Lymphocytes % 28.3 % (21.3-54.2); Mean Corpuscular Hemoglobin 33 PG (27-34); Mean Corpuscular Volume 95.5 FL (87-102); Mean Platelet Volume 10.4 FL (9.6-12.0); Monocytes # 0.7 10*3/uL (0.11-0.8); Monocytes % 9.3 % (1.7-12.7); Neutrophils # 4.2 10*3/uL (1.4-7.4); Neutrophils % 59.5 % (38.7-73.9); Platelet Count 226 T/CUMM (130-400); Red Blood Count 3.54 MC/CUMM (3.8-5.5); Red Cell Distribution Width 12.1 % (9.3-17.3); White Blood Count 7.1 T/CUMM (4-12)
[2017-07-14 04:00] LABS: Calcium 8.2 MG/DL (8.5-10.1); Osmolality,Calculated 278.5 MOS/KG (273-304); Potassium 4.1 MMOL/L (3.5-5.1)
[2017-07-14] MEDS: busPIRone 15 MG TABLET PO SCH ×3 (08:23→21:00)
[2017-07-14] MEDS: ROSUVASTATIN 20 MG TABLET PO SCH (08:23)
[2017-07-14] MEDS: METOPROLOL TARTRATE 25 MG TABLET PO SCH ×2 (08:23→21:00)
[2017-07-14] MEDS: DILTIAZEM CD 300 MG CAPSULE PO SCH (08:23)
[2017-07-14] MEDS: GABAPENTIN 400 MG CAPSULE PO SCH ×2 (08:24→21:00)
[2017-07-14] MEDS: ASPIRIN EC 81 MG TABLET PO SCH (08:24)
[2017-07-14] MEDS: PANTOPRAZOLE 40 MG VIAL IV SCH (08:24)
[2017-07-14] MEDS ORDERED: METOPROLOL TARTRATE 5 MG/5 ML VIAL IV ONE ×3 (12:54→13:04)
[2017-07-14] MEDS: HYDROmorphone PCA 30 MG/30 ML SYRINGE IV SCH (14:27)
[2017-07-14] MEDS: DILTIAZEM INJ 100 MG in SODIUM CHLORIDE 0.9% 100 ML IV SCH (15:18)
[2017-07-14] MEDS: fentaNYL 50 MCG/HR PATCH TRANSDERM SCH (15:54)
[2017-07-14] MEDS: MORPHINE PCA 30 MG/30 ML SYRINGE IV SCH (16:23)
[2017-07-14] MEDS: ENOXAPARIN 40 MG/0.4 ML SYRINGE SUBCUT SCH (16:25)
[2017-07-14] MEDS ORDERED: METOPROLOL TARTRATE 5 MG/5 ML VIAL IV PRN (19:22)
[2017-07-14] MEDS ORDERED: ENOXAPARIN 40 MG/0.4 ML SYRINGE SUBCUT ONE (19:30)
[2017-07-15] MEDS: INSULIN REGULAR 100 UNIT/ML SUBCUT SCH ×4 (00:52→18:22)
[2017-07-15] MEDS: DILTIAZEM INJ 100 MG in SODIUM CHLORIDE 0.9% 100 ML IV SCH ×2 (00:55→15:29)
[2017-07-15] MEDS: oxyCODONE/ACETAMINOPHEN 5-325 MG TABLET PO PRN (01:35)
[2017-07-15] MEDS: DEXT 5% NACL 0.45% KCL 40 MEQ 40 MEQ/1,000 ML BAG IV SCH ×5 (01:52→23:35)
[2017-07-15 04:10] LABS: Basophils % 0.2 % (0.0-0.8); Eosinophils # 0.1 10*3/uL (0.0-0.87); Eosinophils % 2.5 % (0.00-10.9); Hematocrit 35.5 VOL% (35.7-47.0); Hemoglobin 12.1 GM/DL (12.0-16.0); Immature Granulocytes % 0.4 %; Immature Granulocytes Absolute 0.02 #; Lymphocytes # 1.4 10*3/uL (1.4-4.0); Lymphocytes % 26.9 % (21.3-54.2); Mean Corpuscular HGB Conc 34.1 GM/DL (32-36); Mean Corpuscular Hemoglobin 33 PG (27-34); Mean Corpuscular Volume 97.3 FL (87-102); Mean Platelet Volume 10.4 FL (9.6-12.0); Monocytes # 0.3 10*3/uL (0.11-0.8); Monocytes % 6.4 % (1.7-12.7); Neutrophils # 3.3 10*3/uL (1.4-7.4); Neutrophils % 63.6 % (38.7-73.9); Platelet Count 139 T/CUMM (130-400); Red Blood Count 3.65 MC/CUMM (3.8-5.5); White Blood Count 5.2 T/CUMM (4-12)
[2017-07-15 04:11] LABS: Calcium 8.2 MG/DL (8.5-10.1); Magnesium 1.7 MG/DL (1.8-2.4); Osmolality,Calculated 277.5 MOS/KG (273-304); Potassium 3.4 MMOL/L (3.5-5.1)
[2017-07-15] MEDS: METOPROLOL TARTRATE 25 MG TABLET PO SCH ×2 (09:36→20:56)
[2017-07-15] MEDS: PANTOPRAZOLE 40 MG VIAL IV SCH (09:36)
[2017-07-15] MEDS: ROSUVASTATIN 20 MG TABLET PO SCH (09:36)
[2017-07-15] MEDS: ENOXAPARIN 80 MG/0.8 ML SYRINGE SUBCUT SCH ×2 (09:37→20:55)
[2017-07-15] MEDS: GABAPENTIN 400 MG CAPSULE PO SCH ×2 (09:37→20:56)
[2017-07-15] MEDS: busPIRone 15 MG TABLET PO SCH ×3 (09:37→20:55)
[2017-07-15] MEDS: ASPIRIN EC 81 MG TABLET PO SCH (09:37)
[2017-07-15] MEDS ORDERED: SODIUM PHOSPHATE ENEMA 133 ML BOTTLE RECTAL ONE (14:53)
[2017-07-15] MEDS: ALUMINUM/MAGNES/SIMETH MAX STR 30 ML UDCUP PO SCH ×2 (18:19→20:55)
[2017-07-16] MEDS: INSULIN REGULAR 100 UNIT/ML SUBCUT SCH ×4 (01:25→22:16)
[2017-07-16] MEDS: DEXT 5% NACL 0.45% KCL 40 MEQ 40 MEQ/1,000 ML BAG IV SCH ×3 (01:28→09:18)
[2017-07-16] MEDS: ALUMINUM/MAGNES/SIMETH MAX STR 30 ML UDCUP PO SCH ×4 (03:30→22:16)
[2017-07-16 06:18] LABS: Basophils % 0.3 % (0.0-0.8); Eosinophils # 0.2 10*3/uL (0.0-0.87); Eosinophils % 2.4 % (0.00-10.9); Hematocrit 32.1 VOL% (35.7-47.0); Hemoglobin 11.3 GM/DL (12.0-16.0); Immature Granulocytes % 0.5 %; Immature Granulocytes Absolute 0.03 #; Lymphocytes # 1.6 10*3/uL (1.4-4.0); Lymphocytes % 23.6 % (21.3-54.2); Mean Corpuscular HGB Conc 35.2 GM/DL (32-36); Mean Corpuscular Hemoglobin 33 PG (27-34); Mean Corpuscular Volume 94.4 FL (87-102); Mean Platelet Volume 11.6 FL (9.6-12.0); Monocytes # 0.5 10*3/uL (0.11-0.8); Monocytes % 6.8 % (1.7-12.7); Neutrophils # 4.4 10*3/uL (1.4-7.4); Neutrophils % 66.4 % (38.7-73.9); Platelet Count 155 T/CUMM (130-400); White Blood Count 6.7 T/CUMM (4-12)
[2017-07-16 06:53] LABS: Calcium 7.9 MG/DL (8.5-10.1); Magnesium 1.7 MG/DL (1.8-2.4); Osmolality,Calculated 277.5 MOS/KG (273-304); Potassium 4.3 MMOL/L (3.5-5.1)
[2017-07-16 07:24] LABS: Hypochromasia 1+
[2017-07-16 07:25] LABS: Burr Cells Slight; Giant Platelets Few; Ovalocytes Slight; Platelet Estimate Normal
[2017-07-16] MEDS: MORPHINE PCA 30 MG/30 ML SYRINGE IV SCH ×2 (07:48→09:19)
[2017-07-16] MEDS: ROSUVASTATIN 20 MG TABLET PO SCH (09:17)
[2017-07-16] MEDS: ENOXAPARIN 80 MG/0.8 ML SYRINGE SUBCUT SCH ×2 (09:17→22:14)
[2017-07-16] MEDS: METOPROLOL TARTRATE 25 MG TABLET PO SCH ×2 (09:17→22:16)
[2017-07-16] MEDS: busPIRone 15 MG TABLET PO SCH ×3 (09:17→22:15)
[2017-07-16] MEDS: GABAPENTIN 400 MG CAPSULE PO SCH ×2 (09:18→22:16)
[2017-07-16] MEDS: ASPIRIN EC 81 MG TABLET PO SCH (09:18)
[2017-07-16] MEDS: PANTOPRAZOLE 40 MG VIAL IV SCH (09:19)
[2017-07-16] MEDS ORDERED: SODIUM PHOSPHATE ENEMA 133 ML BOTTLE RECTAL ONE (09:48)
[2017-07-16] MEDS ORDERED: MAGNESIUM SULF RIDER 4 GM in PREMIX 1 EACH IV PRN (09:55)
[2017-07-16] MEDS: MAGNESIUM SULF RIDER 2 GM in PREMIX 1 EACH IV PRN (10:49)
[2017-07-16] MEDS: DILTIAZEM INJ 100 MG in SODIUM CHLORIDE 0.9% 100 ML IV SCH (13:50)
[2017-07-16] MEDS: oxyCODONE/ACETAMINOPHEN 5-325 MG TABLET PO PRN (20:20)
[2017-07-16] MEDS: NIFEdipine 10 MG CAPSULE PO SCH (22:15)
[2017-07-17] MEDS: INSULIN REGULAR 100 UNIT/ML SUBCUT SCH ×4 (00:05→18:26)
[2017-07-17] MEDS: ALUMINUM/MAGNES/SIMETH MAX STR 30 ML UDCUP PO SCH ×4 (03:03→22:38)
[2017-07-17] MEDS: oxyCODONE/ACETAMINOPHEN 5-325 MG TABLET PO PRN ×4 (05:15→19:42)
[2017-07-17 05:48] LABS: Basophils % 0.2 % (0.0-0.8); Eosinophils # 0.2 10*3/uL (0.0-0.87); Eosinophils % 3.4 % (0.00-10.9); Hematocrit 31.7 VOL% (35.7-47.0); Hemoglobin 11.3 GM/DL (12.0-16.0); Immature Granulocytes % 0.4 %; Immature Granulocytes Absolute 0.02 #; Lymphocytes # 1.3 10*3/uL (1.4-4.0); Lymphocytes % 22.3 % (21.3-54.2); Mean Corpuscular HGB Conc 35.6 GM/DL (32-36); Mean Corpuscular Hemoglobin 33 PG (27-34); Mean Corpuscular Volume 92.4 FL (87-102); Mean Platelet Volume 9.8 FL (9.6-12.0); Monocytes # 0.4 10*3/uL (0.11-0.8); Monocytes % 6.4 % (1.7-12.7); Neutrophils # 3.8 10*3/uL (1.4-7.4); Neutrophils % 67.3 % (38.7-73.9); Platelet Count 208 T/CUMM (130-400); Red Blood Count 3.43 MC/CUMM (3.8-5.5); Red Cell Distribution Width 11.9 % (9.3-17.3); White Blood Count 5.6 T/CUMM (4-12)
[2017-07-17 06:11] LABS: Calcium 8.3 MG/DL (8.5-10.1); Magnesium 1.8 MG/DL (1.8-2.4); Osmolality,Calculated 273.7 MOS/KG (273-304); Potassium 3.6 MMOL/L (3.5-5.1)
[2017-07-17] MEDS: MORPHINE PCA 30 MG/30 ML SYRINGE IV SCH ×2 (06:45→11:14)
[2017-07-17] MEDS: fentaNYL 50 MCG/HR PATCH TRANSDERM SCH ×2 (09:06→11:11)
[2017-07-17] MEDS: NIFEdipine 10 MG CAPSULE PO SCH (09:11)
[2017-07-17] MEDS: METOPROLOL TARTRATE 25 MG TABLET PO SCH ×2 (09:12→22:38)
[2017-07-17] MEDS: busPIRone 15 MG TABLET PO SCH ×3 (09:12→22:38)
[2017-07-17] MEDS: GABAPENTIN 400 MG CAPSULE PO SCH ×2 (09:12→22:38)
[2017-07-17] MEDS: ROSUVASTATIN 20 MG TABLET PO SCH ×2 (09:12→22:39)
[2017-07-17] MEDS: ASPIRIN EC 81 MG TABLET PO SCH (09:12)
[2017-07-17] MEDS: PANTOPRAZOLE 40 MG VIAL IV SCH (09:13)
[2017-07-17] MEDS: ENOXAPARIN 80 MG/0.8 ML SYRINGE SUBCUT SCH ×2 (09:13→22:38)
[2017-07-17] MEDS: MAGNESIUM SULF RIDER 2 GM in PREMIX 1 EACH IV PRN (09:15)
[2017-07-17] MEDS: POTASSIUM CHLORIDE RIDER 10 MEQ in PREMIX 1 EACH IV PRN ×2 (12:09→16:02)
[2017-07-17] MEDS: MORPHINE 2 MG/1 ML SYRINGE IV PRN (18:37)
[2017-07-18] MEDS: MORPHINE 2 MG/1 ML SYRINGE IV PRN ×4 (00:14→21:18)
[2017-07-18] MEDS: INSULIN REGULAR 100 UNIT/ML SUBCUT SCH ×4 (01:47→17:59)
[2017-07-18] MEDS: ALUMINUM/MAGNES/SIMETH MAX STR 30 ML UDCUP PO SCH ×4 (03:21→21:20)
[2017-07-18 05:46] LABS: Basophils % 0.2 % (0.0-0.8); Eosinophils # 0.2 10*3/uL (0.0-0.87); Eosinophils % 4.2 % (0.00-10.9); Hematocrit 30.7 VOL% (35.7-47.0); Hemoglobin 10.9 GM/DL (12.0-16.0); Immature Granulocytes % 0.5 %; Immature Granulocytes Absolute 0.03 #; Lymphocytes # 1.2 10*3/uL (1.4-4.0); Mean Corpuscular HGB Conc 35.5 GM/DL (32-36); Mean Corpuscular Hemoglobin 33 PG (27-34); Mean Corpuscular Volume 93.3 FL (87-102); Mean Platelet Volume 9.8 FL (9.6-12.0); Monocytes # 0.3 10*3/uL (0.11-0.8); Monocytes % 6.1 % (1.7-12.7); Neutrophils # 3.7 10*3/uL (1.4-7.4); Platelet Count 201 T/CUMM (130-400); Red Blood Count 3.29 MC/CUMM (3.8-5.5); Red Cell Distribution Width 11.9 % (9.3-17.3); White Blood Count 5.5 T/CUMM (4-12)
[2017-07-18 06:19] LABS: Calcium 8.2 MG/DL (8.5-10.1); Magnesium 2.2 MG/DL (1.8-2.4); Osmolality,Calculated 274.5 MOS/KG (273-304); Potassium 3.8 MMOL/L (3.5-5.1)
[2017-07-18] MEDS: oxyCODONE/ACETAMINOPHEN 5-325 MG TABLET PO PRN ×3 (07:42→17:26)
[2017-07-18] MEDS: POTASSIUM CHLORIDE RIDER 10 MEQ in PREMIX 1 EACH IV PRN ×2 (07:43→08:52)
[2017-07-18] MEDS: METOPROLOL TARTRATE 25 MG TABLET PO SCH ×2 (08:51→21:20)
[2017-07-18] MEDS: ASPIRIN EC 81 MG TABLET PO SCH (08:51)
[2017-07-18] MEDS: busPIRone 15 MG TABLET PO SCH ×3 (08:51→21:20)
[2017-07-18] MEDS: NIFEdipine 10 MG CAPSULE PO SCH (08:51)
[2017-07-18] MEDS: ENOXAPARIN 80 MG/0.8 ML SYRINGE SUBCUT SCH ×2 (08:52→21:19)
[2017-07-18] MEDS: GABAPENTIN 400 MG CAPSULE PO SCH ×2 (08:52→21:20)
[2017-07-18] MEDS: PANTOPRAZOLE 40 MG VIAL IV SCH (08:53)
[2017-07-18] MEDS: ROSUVASTATIN 20 MG TABLET PO SCH (21:20)
[2017-07-19] MEDS: INSULIN REGULAR 100 UNIT/ML SUBCUT SCH ×4 (00:06→18:14)
[2017-07-19] MEDS: oxyCODONE/ACETAMINOPHEN 5-325 MG TABLET PO PRN ×4 (02:39→19:03)
[2017-07-19] MEDS: ALUMINUM/MAGNES/SIMETH MAX STR 30 ML UDCUP PO SCH ×4 (03:02→21:57)
[2017-07-19] MEDS: MORPHINE 2 MG/1 ML SYRINGE IV PRN (06:12)
[2017-07-19] MEDS: busPIRone 15 MG TABLET PO SCH ×3 (09:03→21:56)
[2017-07-19] MEDS: PANTOPRAZOLE 40 MG VIAL IV SCH (09:03)
[2017-07-19] MEDS: ENOXAPARIN 80 MG/0.8 ML SYRINGE SUBCUT SCH ×2 (09:03→21:56)
[2017-07-19] MEDS: METOPROLOL TARTRATE 50 MG TABLET PO SCH ×2 (09:03→21:57)
[2017-07-19] MEDS: ASPIRIN EC 81 MG TABLET PO SCH (09:03)
[2017-07-19] MEDS: GABAPENTIN 400 MG CAPSULE PO SCH ×2 (09:05→21:56)
[2017-07-19] MEDS: ROSUVASTATIN 20 MG TABLET PO SCH (21:56)
[2017-07-20] MEDS: INSULIN REGULAR 100 UNIT/ML SUBCUT SCH ×2 (02:38→07:28)
[2017-07-20] MEDS: ALUMINUM/MAGNES/SIMETH MAX STR 30 ML UDCUP PO SCH (03:36)
[2017-07-20] MEDS: oxyCODONE/ACETAMINOPHEN 5-325 MG TABLET PO PRN (07:46)
[2017-07-20 07:50] VITALS: BP 116/65
== END 2017-07-20 09:28 | disposition home or self-care (01) | DRG 336 ==
LOC: EDUNIT# → N.ED 06:39 → N.EDINP 07:31 → N.3E 09:09 → N.TELES 07-14 13:23
PROVIDERS: ADMIT Surgery; ATTEND Surgery

== ENCOUNTER 2020-10-10 17:37 | Inpatient (IN) ==
[2020-10-10] MEDS ORDERED: ONDANSETRON 4 MG/2 ML VIAL IV STA (18:04)
[2020-10-10] MEDS ORDERED: SODIUM CHLORIDE 0.9% 500 ML IV STA (18:04)
[2020-10-10] MEDS ORDERED: HYDROmorphone 2 MG/1 ML VIAL IV STA (18:04)
[2020-10-10 18:28] LABS: Basophils % 0.2 % (0.0-0.8); Eosinophils # 0.1 10*3/uL (0.0-0.87); Eosinophils % 0.7 % (0.00-10.9); Hemoglobin 14.2 GM/DL (12.0-16.0); Immature Granulocytes % 0.4 %; Immature Granulocytes Absolute 0.04 #; Lymphocytes # 1.5 10*3/uL (1.4-4.0); Lymphocytes % 16.1 % (21.3-54.2); Mean Corpuscular HGB Conc 34.6 GM/DL (32-36); Mean Corpuscular Volume 93.2 FL (87-102); Mean Platelet Volume 9.5 FL (9.6-12.0); Monocytes % 4.3 % (1.7-12.7); Neutrophils % 78.3 % (38.7-73.9); Platelet Count 266 T/CUMM (130-400); Red Cell Distribution Width 12.9 % (9.3-17.3); White Blood Count 9.5 T/CUMM (4-12)
[2020-10-10 18:34] LABS: Bilirubin,Urine Negative (Negative); Blood, Urine Negative (Negative); Glucose,Urine (UA) Negative (Negative); Ketones,Urine 5 mg/dL (Negative); Mucus,Urine Many /LPF (Occasional); Nitrite,Urine Negative (Negative); Protein,Urine 100 MG/DL; RBC,Urine 1 /HPF (0-4); Squamous Epithelial Cell,Urine Occasional /HPF (0-10); Urine Appearance CLEAR (Clear); Urine Color Yellow (Yellow); Urine Specific Gravity 1.028 (1.001-1.035); Urine Urobilinogen < 2.0 EU/DL (0.2-1.0); WBC,Urine 4 /HPF (0-6)
[2020-10-10 18:50] LABS: Albumin 4.8 G/DL (3.4-5.0); Bilirubin,Total 0.5 MG/DL (0.2-1.0); Calcium 9.9 MG/DL (8.5-10.1); Osmolality,Calculated 277.7 MOS/KG (273-304); Potassium 3.6 MMOL/L (3.5-5.1); Total Protein 8.5 G/DL (6.4-8.3)
[2020-10-10 19:25] LABS: INR 1.2; PT Patient Result 12.4 SECS (9.8-11.9)
[2020-10-10] MEDS ORDERED: ONDANSETRON 4 MG/2 ML VIAL IV PRN (19:53)
[2020-10-10] MEDS ORDERED: MAGNESIUM GLUCONATE 500 MG TABLET PO SCH (21:00)
[2020-10-10] MEDS ORDERED: MAGNESIUM SULF RIDER 4 GM in PREMIX 1 EACH IV PRN (22:23)
[2020-10-10] MEDS ORDERED: MAGNESIUM SULF RIDER 2 GM in PREMIX 1 EACH IV PRN (22:23)
[2020-10-10] MEDS: MORPHINE 4 MG/1 ML VIAL IV PRN (22:30)
[2020-10-10] MEDS ORDERED: hydrALAZINE 20 MG/1 ML VIAL IV PRN (22:35)
[2020-10-10] MEDS ORDERED: DEXTROSE 50% 25 GM/50 ML VIAL IV PRN (22:38)
[2020-10-10] MEDS ORDERED: GLUCAGON 1 MG VIAL IM PRN (22:38)
[2020-10-10] MEDS: busPIRone 10 MG TABLET PO SCH (22:44)
[2020-10-10] MEDS: LACTATED RINGERS 1,000 ML IV SCH (23:34)
[2020-10-10] MEDS: ACETAMINOPHEN 325 MG TABLET PO PRN (23:35)
[2020-10-11] MEDS: METOPROLOL TARTRATE 50 MG TABLET PO SCH
[2020-10-11] MEDS: ROSUVASTATIN 20 MG TABLET PO SCH (00:01)
[2020-10-11] MEDS: INSULIN LISPRO 100 UNIT/ML SUBCUT SCH ×5 (00:29→23:34)
[2020-10-11] MEDS: METOPROLOL TARTRATE 5 MG/5 ML VIAL IV SCH ×6 (00:30→23:42)
[2020-10-11] MEDS: MORPHINE 4 MG/1 ML VIAL IV PRN ×8 (02:04→23:07)
[2020-10-11] MEDS: LACTATED RINGERS 1,000 ML IV SCH ×3 (04:54→23:43)
[2020-10-11 05:36] LABS: Basophils % 0.3 % (0.0-0.8); Eosinophils # 0.1 10*3/uL (0.0-0.87); Eosinophils % 1.2 % (0.00-10.9); Hematocrit 38.2 VOL% (35.7-47.0); Hemoglobin 13.2 GM/DL (12.0-16.0); Immature Granulocytes % 0.2 %; Immature Granulocytes Absolute 0.01 #; Lymphocytes # 2.2 10*3/uL (1.4-4.0); Lymphocytes % 36.4 % (21.3-54.2); Mean Corpuscular HGB Conc 34.6 GM/DL (32-36); Mean Corpuscular Volume 92.7 FL (87-102); Mean Platelet Volume 10.4 FL (9.6-12.0); Monocytes % 6.8 % (1.7-12.7); Neutrophils % 55.1 % (38.7-73.9); Platelet Count 224 T/CUMM (130-400); Red Blood Count 4.12 MC/CUMM (3.8-5.5); White Blood Count 6.1 T/CUMM (4-12)
[2020-10-11 06:11] LABS: Calcium 9.3 MG/DL (8.5-10.1); Osmolality,Calculated 274.8 MOS/KG (273-304); Potassium 3.5 MMOL/L (3.5-5.1); Total Protein 7.5 G/DL (6.4-8.3)
[2020-10-11] MEDS ORDERED: PANTOPRAZOLE 40 MG TABLET PO SCH (09:00)
[2020-10-11] MEDS ORDERED: OMEPRAZOLE 20 MG PO SCH (09:00)
[2020-10-11] MEDS: PANTOPRAZOLE 40 MG VIAL IV SCH (09:17)
[2020-10-11] MEDS: ONDANSETRON 4 MG/2 ML VIAL IV PRN ×2 (09:18→15:52)
[2020-10-11] MEDS: busPIRone 10 MG TABLET PO SCH ×4 (09:22→20:31)
[2020-10-11] MEDS: HEPARIN DRIP 25,000 UNITS/500 ML PREMIX IV SCH (09:23)
[2020-10-11 16:23] LABS: INR 1.1; PT Patient Result 11.3 SECS (9.8-11.9); Partial Thromboplastin Time 53.8 SECS (23.9-33.8)
[2020-10-12] MEDS: MORPHINE 4 MG/1 ML VIAL IV PRN ×5 (02:40→20:48)
[2020-10-12] MEDS: ONDANSETRON 4 MG/2 ML VIAL IV PRN ×2 (04:04→09:41)
[2020-10-12] MEDS: METOPROLOL TARTRATE 5 MG/5 ML VIAL IV SCH ×3 (05:15→19:23)
[2020-10-12] MEDS: INSULIN LISPRO 100 UNIT/ML SUBCUT SCH ×3 (06:02→18:58)
[2020-10-12 08:07] LABS: Risk Ratio 1.85; VLDL CHOLESTEROL 24.8 MG/DL
[2020-10-12] MEDS: PANTOPRAZOLE 40 MG VIAL IV SCH (09:44)
[2020-10-12] MEDS: busPIRone 10 MG TABLET PO SCH ×4 (09:49→21:18)
[2020-10-12] MEDS: HEPARIN DRIP 25,000 UNITS/500 ML PREMIX IV SCH (12:20)
[2020-10-13] MEDS: MORPHINE 4 MG/1 ML VIAL IV PRN ×8 (00:04→20:48)
[2020-10-13] MEDS: METOPROLOL TARTRATE 5 MG/5 ML VIAL IV SCH ×3 (00:06→12:05)
[2020-10-13] MEDS: INSULIN LISPRO 100 UNIT/ML SUBCUT SCH ×4 (00:08→17:37)
[2020-10-13] MEDS: LACTATED RINGERS 1,000 ML IV SCH ×6 (04:29→16:04)
[2020-10-13 05:57] LABS: Basophils % 0.2 % (0.0-0.8); Eosinophils # 0.1 10*3/uL (0.0-0.87); Eosinophils % 3.2 % (0.00-10.9); Hematocrit 33.8 VOL% (35.7-47.0); Hemoglobin 11.9 GM/DL (12.0-16.0); Immature Granulocytes % 0.2 %; Immature Granulocytes Absolute 0.01 #; Lymphocytes # 1.9 10*3/uL (1.4-4.0); Mean Corpuscular HGB Conc 35.2 GM/DL (32-36); Mean Corpuscular Volume 93.9 FL (87-102); Mean Platelet Volume 10.5 FL (9.6-12.0); Monocytes % 8.4 % (1.7-12.7); Platelet Count 185 T/CUMM (130-400); Red Cell Distribution Width 12.6 % (9.3-17.3); White Blood Count 4.4 T/CUMM (4-12)
[2020-10-13 06:23] LABS: Calcium 8.5 MG/DL (8.5-10.1); Osmolality,Calculated 277.4 MOS/KG (273-304); Potassium 2.7 MMOL/L (3.5-5.1)
[2020-10-13] MEDS ORDERED: INFLUENZA VIRUS VACCINE 0.5 ML SYRINGE IM ONE (09:00)
[2020-10-13] MEDS: PANTOPRAZOLE 40 MG VIAL IV SCH (09:13)
[2020-10-13] MEDS: busPIRone 10 MG TABLET PO SCH ×3 (09:14→20:46)
[2020-10-13] MEDS: HEPARIN DRIP 25,000 UNITS/500 ML PREMIX IV SCH ×2 (09:26→16:05)
[2020-10-13] MEDS: GABAPENTIN 400 MG CAPSULE PO SCH (20:45)
[2020-10-14] MEDS: MORPHINE 4 MG/1 ML VIAL IV PRN ×6 (00:14→21:33)
[2020-10-14] MEDS: INSULIN LISPRO 100 UNIT/ML SUBCUT SCH ×5 (01:00→23:49)
[2020-10-14 05:25] LABS: Basophils % 0.2 % (0.0-0.8); Eosinophils # 0.2 10*3/uL (0.0-0.87); Eosinophils % 4.6 % (0.00-10.9); Hematocrit 29.7 VOL% (35.7-47.0); Hemoglobin 10.4 GM/DL (12.0-16.0); Immature Granulocytes % 0.2 %; Immature Granulocytes Absolute 0.01 #; Lymphocytes # 1.5 10*3/uL (1.4-4.0); Monocytes % 8.4 % (1.7-12.7); Neutrophils % 50.6 % (38.7-73.9); Platelet Count 161 T/CUMM (130-400); Red Blood Count 3.23 MC/CUMM (3.8-5.5); Red Cell Distribution Width 12.4 % (9.3-17.3); White Blood Count 4.2 T/CUMM (4-12)
[2020-10-14 05:42] LABS: Calcium 8.4 MG/DL (8.5-10.1); Osmolality,Calculated 272.7 MOS/KG (273-304)
[2020-10-14 05:44] LABS: Potassium 2.5 MMOL/L (3.5-5.1)
[2020-10-14] MEDS: POTASSIUM CHLORIDE RIDER 10 MEQ in PREMIX 1 EACH IV PRN ×4 (06:16→10:37)
[2020-10-14] MEDS: busPIRone 10 MG TABLET PO SCH ×3 (09:22→21:32)
[2020-10-14] MEDS: PANTOPRAZOLE 40 MG VIAL IV SCH (09:22)
[2020-10-14] MEDS ORDERED: POTASSIUM CHLORIDE 20 MEQ TABLET PO ONE (10:30)
[2020-10-14] MEDS: ONDANSETRON 4 MG/2 ML VIAL IV PRN (10:35)
[2020-10-14] MEDS: GABAPENTIN 400 MG CAPSULE PO SCH ×3 (10:38→21:32)
[2020-10-14] MEDS: HYDROXYCHLOROQUINE 200 MG TABLET PO SCH (11:48)
[2020-10-14] MEDS: HEPARIN DRIP 25,000 UNITS/500 ML PREMIX IV SCH (17:57)
[2020-10-14] MEDS: metFORMIN 500 MG TABLET PO SCH (18:12)
[2020-10-14] MEDS ORDERED: HEPARIN 5,000 UNIT/1 ML VIAL IV ONE (21:12)
[2020-10-15] MEDS: MORPHINE 4 MG/1 ML VIAL IV PRN ×5 (00:40→23:57)
[2020-10-15] MEDS: HEPARIN DRIP 25,000 UNITS/500 ML PREMIX IV SCH ×3 (01:31→21:19)
[2020-10-15 02:46] LABS: Calcium 9.2 MG/DL (8.5-10.1); Osmolality,Calculated 275.4 MOS/KG (273-304)
[2020-10-15] MEDS ORDERED: HEPARIN 5,000 UNIT/1 ML VIAL IV ONE (03:15)
[2020-10-15] MEDS: INSULIN LISPRO 100 UNIT/ML SUBCUT SCH ×3 (06:14→17:17)
[2020-10-15] MEDS: POTASSIUM CHLORIDE RIDER 10 MEQ in PREMIX 1 EACH IV PRN ×7 (06:39→22:40)
[2020-10-15] MEDS ORDERED: METOPROLOL TARTRATE 5 MG/5 ML VIAL IV ONE ×2 (06:42→08:31)
[2020-10-15] MEDS ORDERED: DIGOXIN 0.5 MG/2 ML AMP IV ONE (08:32)
[2020-10-15] MEDS: metFORMIN 500 MG TABLET PO SCH ×2 (08:50→16:36)
[2020-10-15] MEDS: GABAPENTIN 400 MG CAPSULE PO SCH ×3 (08:50→20:18)
[2020-10-15] MEDS: busPIRone 10 MG TABLET PO SCH ×3 (08:50→20:18)
[2020-10-15] MEDS: HYDROXYCHLOROQUINE 200 MG TABLET PO SCH (08:50)
[2020-10-15] MEDS: LOSARTAN 50 MG TABLET PO SCH (08:50)
[2020-10-15] MEDS: PANTOPRAZOLE 40 MG TABLET PO SCH (08:50)
[2020-10-15] MEDS ORDERED: amLODIPine 5 MG TABLET PO SCH (09:00)
[2020-10-15] MEDS: METOPROLOL TARTRATE 50 MG TABLET PO SCH ×2 (09:51→20:18)
[2020-10-15] MEDS: LACTATED RINGERS 1,000 ML IV SCH (17:20)
[2020-10-15] MEDS: ROSUVASTATIN 20 MG TABLET PO SCH (21:23)
[2020-10-15] MEDS: ACETAMINOPHEN 325 MG TABLET PO PRN (21:23)
[2020-10-16] MEDS: INSULIN LISPRO 100 UNIT/ML SUBCUT SCH ×3 (00:05→12:13)
[2020-10-16] MEDS: MORPHINE 4 MG/1 ML VIAL IV PRN ×3 (03:25→12:34)
[2020-10-16 06:55] LABS: Calcium 9.1 MG/DL (8.5-10.1); Osmolality,Calculated 279.4 MOS/KG (273-304); Potassium 3.6 MMOL/L (3.5-5.1)
[2020-10-16] MEDS ORDERED: BISACODYL 10 MG SUPP RECTAL ONE (08:15)
[2020-10-16] MEDS ORDERED: METOPROLOL TARTRATE 100 MG TABLET PO SCH (08:37)
[2020-10-16] MEDS: LOSARTAN 50 MG TABLET PO SCH (09:03)
[2020-10-16] MEDS: GABAPENTIN 400 MG CAPSULE PO SCH (09:03)
[2020-10-16] MEDS: busPIRone 10 MG TABLET PO SCH (09:03)
[2020-10-16] MEDS: metFORMIN 500 MG TABLET PO SCH (09:03)
[2020-10-16] MEDS: HYDROXYCHLOROQUINE 200 MG TABLET PO SCH (09:04)
[2020-10-16] MEDS: PANTOPRAZOLE 40 MG TABLET PO SCH (09:04)
[2020-10-16] MEDS ORDERED: HEPARIN DRIP 25,000 UNITS/500 ML PREMIX IV SCH (10:30)
[2020-10-16 12:11] VITALS: BP 119/60
[2020-10-16] MEDS ORDERED: RIVAROXABAN 20 MG TABLET PO SCH (17:00)
== END 2020-10-16 15:34 | disposition home or self-care (01) | DRG 389 ==
LOC: EDUNIT# → EDBD → N.ED 17:37 → N.EDINP 19:53 → N.3E 21:38
PROVIDERS: ADMIT Surgery; ATTEND Surgery